=== PATIENT | male | born 1990 | race Two or more races ===

== ENCOUNTER 2024-01-18 02:47 | Emergency (ER) | payer SELFPAY ==
[~2024-01-18] VITALS: Ht 157.5 cm; Wt 56.8 kg
[2024-01-18 03:00] VITALS: BP 103/63; PULSE 135; RESP 14; TEMP 100.2
[2024-01-18 03:36] LABS: COVID AG,FIA SOURCE NASAL SWAB
[2024-01-18 03:45] LABS: HEMATOCRIT 42.4 % (41-53); HEMOGLOBIN 14.4 g/dL (13.5-17.5); MEAN CORPUSCULAR HEMOGLOBIN 28.8 pg (26.0-34.0); MEAN CORPUSCULAR VOLUME 85 fL (80-100); PLATELET COUNT (AUTO) 212 K/uL (150-450); RED CELL DISTRIBUTION WIDTH 13.8 % (11.5-14.5)
[2024-01-18 03:48] LABS: INFLUENZA TYPE A NEGATIVE FOR TYPE A (NEGATIVE); INFLUENZA TYPE B NEGATIVE FOR TYPE B (NEGATIVE); SARS-COV2 (COVID) ANTIGEN,FIA Negative (Negative)
[2024-01-18 03:49] LABS: CALCIUM, TOTAL 8.7 mg/dL (8.8-10.5); CREATININE 1.36 mg/dL (0.60-1.30); POTASSIUM 3.4 mmol/L (3.5-5.1)
[2024-01-18 03:54] LABS: ALBUMIN 3.4 g/dL (3.4-5.0); BILIRUBIN,TOTAL 0.6 mg/dL (0.1-1.0)
[2024-01-18 04:11] LABS: BAND NEUTROPHILS % (MANUAL) 21 % (0-5); EOSINOPHILS % (MANUAL) 2 % (1-6); LYMPHOCYTES % (MANUAL) 5 % (22-44); METAMYELOCYTES % 3 % (0-0); MONOCYTES % (MANUAL) 6 % (2-9); RBC MORPHOLOGY COMMENT NORMAL RBC MORPH; SEGMENTED NEUTROPHILS % 63 % (40-70); TOTAL CELLS COUNTED 100
[2024-01-18] MEDS: LORATADINE 10 MG TABLET PO ONE (04:29)
[2024-01-18] MEDS: FAMOTIDINE 20 MG TABLET PO ONE (04:30)
[2024-01-18] MEDS: PredniSONE 20 MG TABLET PO ONE (04:30)
[2024-01-18] MEDS ORDERED: CEPH-558 PO (04:31)
[2024-01-18] MEDS: ACETAMINOPHEN 500 MG TABLET PO ONE (04:31)
[2024-01-18] MEDS ORDERED: DOXY-354 PO (04:31)
[2024-01-18] MEDS ORDERED: DIPH50CA37 PO (04:31)
[2024-01-18] MEDS: CEPHALEXIN MONOHYDRATE 500 MG CAPSULE PO ONE (04:31)
[2024-01-18] MEDS ORDERED: ACET-66 PO (04:31)
[2024-01-18] MEDS ORDERED: PRED-554 PO (04:31)
[2024-01-18] MEDS: DiphenhydrAMINE HCL 25 MG CAPSULE PO ONE (04:38)
== END 2024-01-18 04:42 | disposition home or self-care (01) ==
LOC: EMS 02:53 → EDBD 02:53 → EMS 04:42
DX: T78.40XA Allergy, unspecified, initial encounter (principal); L03.113 Cellulitis of right upper limb; F41.9 Anxiety disorder, unspecified; F17.210 Nicotine dependence, cigarettes, uncomplicated; F15.90 Other stimulant use, unspecified, uncomplicated; Z20.822 Contact with and (suspected) exposure to COVID-19; X58.XXXA Exposure to other specified factors, initial encounter
CPT/HCPCS: 99285; 71045; 87426; 80053; 85025; 87804; 36415; 93005; J7512